=== PATIENT | female | born 1995 | race Two or more races ===

== ENCOUNTER 2016-11-19 15:53 | Emergency (ER) | payer BC, OTHER ==
[~2016-11-19] VITALS: Ht 165.1 cm; Wt 77.1 kg
[2016-11-19 19:25] VITALS: BP 129/77
== END 2016-11-19 19:40 | disposition home or self-care (01) ==
LOC: ER 15:58
DX: O20.0 Threatened abortion (principal); O26.851 Spotting complicating pregnancy, first trimester; Z3A.08 8 weeks gestation of pregnancy; Z90.49 Acquired absence of other specified parts of digestive tract
CPT/HCPCS: 36415; 76801; 84702